=== PATIENT | male | born 1990 | race Caucasian/White ===

== ENCOUNTER 2016-11-28 03:30 | Emergency (ER) | payer OTHER ==
--- NOTE | 2016-11-28 03:56 | ERPHSYRPT ---
- History of Present Illness Time Seen by Provider: 11/28/16 03:51 Source: patient, family Exam Limitations: no limitations Physician History: pt with one day hx right earache after swimming no known injury to ear; no N/V, no fever, swallowing OK no ST; no cough or SOBreath; no Headache Timing/Duration: abrupt onset Severity: moderate ENT Location: ear (R) Prearrival Treatment: over the counter meds Modifying Factors: Improves With: nothing Associated Symptoms: ear pain (R), ear drainage, No cough, No fever, No dizziness, No drooling, No facial pain/swelling, No headache, No malaise, No poor fluid intake, No ringing of ears, No sore throat, No tooth pain, No difficulty swallowing - Review of Systems Constitutional: No Fever, No Chills Eyes: No Symptoms Ears, Nose, & Throat: Ear Pain, Ear Discharge Respiratory: No Cough, No Dyspnea Cardiac: No Chest Pain, No Edema, No Syncope Abdominal/Gastrointestinal: No Abdominal Pain, No Nausea, No Vomiting, No Diarrhea Genitourinary Symptoms: No Dysuria Musculoskeletal: No Back Pain, No Neck Pain Skin: No Rash Neurological: No Dizziness, No Focal Weakness, No Sensory Changes Psychological: No Symptoms Endocrine: No Symptoms All Other Systems: Reviewed and Negative - Past Medical History Pertinent Past Medical History: No - Physical Exam General Appearance: no apparent distress, alert Eye Exam: bilateral eye: PERRL, EOMI Ear Exam: right ear: swelling, tenderness, TM dull, left ear: canal normal, TM normal, bilateral ear: auricle normal Nasal Exam: normal inspection Throat Exam: pharynx normal, moist mucus membranes, No dental tenderness, No excessive drooling, No pharynx swelling, No pharynx tenderness, No tongue swollen, No tonsillar exudate, No voice changes Neck Exam: normal inspection, non-tender, supple, full range of motion, trachea midline, lymphadenopathy (R), No stiff neck, No meningismus Cardiovascular/Respiratory Exam: normal breath sounds, regular rate/rhythm Abdominal Exam: non-tender, soft Neurologic Exam: alert, oriented x 3, sensation nml, No motor deficits Skin Exam: normal color, warm, dry - Course Nursing assessment & vital signs reviewed: Yes - Progress Progress: improved, re-examined Counseled pt/family regarding: diagnosis, need for follow-up - Departure Time of Disposition: :54 Departure Disposition: Home Clinical Impression: Otitis externa, Otitis media Condition: Good Critical Care Time: No Instructions: Otitis Media (Middle Ear Infection), Ear Pain, Otitis Externa Additional Instructions: avoid swimming for next week until healed. followup with your dr after antibiotics for recheck; return meantime if not improving. Prescriptions: Amoxicillin/Potassium Clav [Augmentin 875 mg (Amox Tr-K Clv 875-125 mg)] 1 each PO BID #20 tablet Ciprofloxacin/Hydrocortisone [Cipro Hc Otic Suspension] 10 ml OT QID #1 drops.susp
[2016-11-28 03:59] VITALS: O2SAT 99
[2016-11-28] MEDS ORDERED: Augmentin 875-125 Tablet PO ONE (03:59)
[2016-11-28] MEDS ORDERED: CORTISPORIN EAR DROPS Solution 1OML OT ONE (03:59)
[2016-11-28] MEDS ORDERED: NORCO 5/325 MG PO ONE (04:00)
[2016-11-28] MEDS ORDERED: Augmentin 875-125 Tablet ONE (04:01)
[2016-11-28] MEDS ORDERED: CORTISPORIN EAR DROPS 10 ML SUSPENSION OT ONE (04:04)
[2016-11-28] MEDS ORDERED: NORCO 5/325 MG ONE (04:11)
[2016-11-28 04:51] VITALS: BP 129/73; PULSE 64
== END 2016-11-28 04:51 | disposition home or self-care (01) ==
LOC: ED 03:30
DX: H60.91 Unspecified otitis externa, right ear (principal); H66.91 Otitis media, unspecified, right ear
CPT/HCPCS: 99283; A9270-GY